=== PATIENT | male | born 1955 | race Caucasian/White ===

== ENCOUNTER 2021-07-23 09:29 | Inpatient (IN) ==
[2021-07-23] MEDS ORDERED: Furosemide 40 MG/4 ML VIAL IVP ONE (09:41)
[2021-07-23 09:58] LABS: Basophils % 0.4 %; Eosinophils % 0.8 %; Hematocrit 30.4 % (37.5-50.1); Hemoglobin 8.6 g/dL (12.9-16.9); Immature Granulocytes % 0.4 % (0-4); Lymphocytes % 20.1 %; Mean Corpuscular HGB Conc 28.3 g/dL (31.6-35.5); Mean Platelet Volume 10.4 fL (9.4-12.4); Monocytes # 0.4 K/mcL (0.0-1.3); Monocytes % 7.7 %; Neutrophils # 3.5 K/mcL (1.6-8.9); Platelet Count 182 K/mcL (140-400); Red Blood Count 3.07 M/mcL (4.19-5.50); Red Cell Distribution Width 16.7 % (11.5-14.5); Segmented Neutrophils % 70.6 %; White Blood Count 4.9 K/mcL (4.3-11.1)
[2021-07-23 10:06] LABS: INR 1.5; Prothrombin Time 16.3 Seconds (9.4-12.1)
[2021-07-23 10:13] LABS: BUN/Creatinine Ratio 15 (6-26); Blood Urea Nitrogen 42 mg/dL (8-23); Carbon Dioxide 22 mEq/L (23-29); Chloride 115 mEq/L (98-107); Glucose 104 mg/dL (70-105); Osmolality,Calculated 311 (280-300); Sodium 145 mEq/L (136-145); eGFR For African Americans 27 (> 60); eGFR For Non-African Americans 22 (> 60)
[2021-07-23 10:17] LABS: Troponin I < 0.03 ng/mL (< 0.04)
[2021-07-23] MEDS ORDERED: Pantoprazole 40 MG VIAL IVP ONE (10:27)
[2021-07-23 10:53] LABS: Anisocytosis 1+ (Not Present); Hypochromasia Present (Not Present); Platelet Estimate Normal (Normal)
[2021-07-23] MEDS ORDERED: NON-FORMULARY MEDICATION 1 EACH EACH (Insulin Aspart [Novolog Flexpen] 100 UNIT/ML Insuln. SQ PRN (14:04)
[2021-07-23] MEDS ORDERED: Silver Sulfadiazine 50 GM TUBE TP ONE (14:27)
[2021-07-23] MEDS ORDERED: Dextrose Gel 15 GM/37.5 ML TUBE PO PRN ×2 (14:31)
[2021-07-23] MEDS ORDERED: D5% in Water 1,000 ML IVC PRN (14:31)
[2021-07-23] MEDS ORDERED: *HR* Dextrose 50 % in Water (Syg) 50 ML SYRINGE IVP PRN (14:31)
[2021-07-23] MEDS ORDERED: Perflutren Lipid Microsphere 1.3 ML in 0.9 % Sodium Chloride 8.7 ML IVP PRN (14:39)
[2021-07-23] MEDS: Gabapentin 300 MG CAPSULE PO SCH ×2 (17:51→21:23)
[2021-07-23] MEDS: Insulin LISPRO 300 UNITS/3 ML VIAL SUBQ SCH ×2 (17:52→21:25)
[2021-07-23] MEDS ORDERED: lisinopriL 5 MG TABLET PO SCH (18:00)
[2021-07-23] MEDS: Apixaban 5 MG TABLET PO SCH (21:23)
[2021-07-23] MEDS: Insulin DETEMIR 100 UNIT/ML X5UNITS SUBQ SCH (21:23)
[2021-07-23] MEDS: Metoprolol XL (24 HR) Succ 25 MG TAB.ER.24H PO SCH (21:23)
[2021-07-23] MEDS: Furosemide 40 MG/4 ML VIAL IVP SCH (21:28)
[2021-07-24 07:00] LABS: Basophils % 0.5 %; Eosinophils # 0.1 K/mcL (0.0-0.6); Eosinophils % 1.2 %; Hematocrit 30.2 % (37.5-50.1); Hemoglobin 8.4 g/dL (12.9-16.9); Immature Granulocytes % 0.5 % (0-4); Lymphocytes # 1.5 K/mcL (0.6-4.6); Lymphocytes % 25.3 %; Mean Corpuscular HGB Conc 27.8 g/dL (31.6-35.5); Mean Corpuscular Hemoglobin 27.6 pg (28.0-33.3); Mean Corpuscular Volume 99.3 fL (83.0-100.0); Mean Platelet Volume 11.1 fL (9.4-12.4); Monocytes # 0.6 K/mcL (0.0-1.3); Monocytes % 9.4 %; Neutrophils # 3.7 K/mcL (1.6-8.9); Platelet Count 182 K/mcL (140-400); Red Blood Count 3.04 M/mcL (4.19-5.50); Red Cell Distribution Width 16.9 % (11.5-14.5); Segmented Neutrophils % 63.1 %; White Blood Count 5.9 K/mcL (4.3-11.1)
[2021-07-24 07:21] LABS: Calcium 7.9 mg/dL (8.6-10.3)
[2021-07-24 09:07] LABS: Ovalocytes 1+ (Not Present); Platelet Estimate Normal (Normal)
[2021-07-24] MEDS: Apixaban 5 MG TABLET PO SCH ×2 (10:14→19:56)
[2021-07-24] MEDS: Gabapentin 300 MG CAPSULE PO SCH ×3 (10:14→19:56)
[2021-07-24] MEDS: Furosemide 40 MG/4 ML VIAL IVP SCH (10:14)
[2021-07-24] MEDS: Metoprolol XL (24 HR) Succ 50 MG TAB.ER.24H PO SCH (10:14)
[2021-07-24] MEDS: BuPROPion XL (24 HR) 150 MG TABLET PO SCH (10:14)
[2021-07-24] MEDS: Insulin LISPRO 300 UNITS/3 ML VIAL SUBQ SCH ×4 (10:21→19:57)
[2021-07-24] MEDS: Metoprolol XL (24 HR) Succ 25 MG TAB.ER.24H PO SCH (19:56)
[2021-07-24] MEDS: Insulin DETEMIR 100 UNIT/ML X5UNITS SUBQ SCH (19:56)
[2021-07-24] MEDS: Furosemide 20 MG/2 ML VIAL IVP SCH (20:09)
[2021-07-24] MEDS ORDERED: Acetaminophen 325 MG TABLET PO PRN (21:11)
[2021-07-25 02:55] VITALS: TEMP 97.4
[2021-07-25] MEDS ORDERED: *HR* Promethazine 25 MG/ML VIAL IM ONE (05:11)
[2021-07-25 06:59] VITALS: BP 123/85; PULSE 97; RESP 20
[2021-07-25 07:13] LABS: Basophils % 0.4 %; Eosinophils # 0.1 K/mcL (0.0-0.6); Hematocrit 30.7 % (37.5-50.1); Hemoglobin 8.6 g/dL (12.9-16.9); Immature Granulocytes % 0.2 % (0-4); Lymphocytes # 1.2 K/mcL (0.6-4.6); Mean Corpuscular Hemoglobin 27.6 pg (28.0-33.3); Mean Corpuscular Volume 98.4 fL (83.0-100.0); Mean Platelet Volume 10.4 fL (9.4-12.4); Monocytes # 0.6 K/mcL (0.0-1.3); Monocytes % 11.1 %; Neutrophils # 3.1 K/mcL (1.6-8.9); Platelet Count 154 K/mcL (140-400); Red Blood Count 3.12 M/mcL (4.19-5.50); Red Cell Distribution Width 16.6 % (11.5-14.5); Segmented Neutrophils % 63.3 %
[2021-07-25 07:38] LABS: Calcium 8.1 mg/dL (8.6-10.3); Magnesium 2.2 mg/dL (1.6-2.6); Potassium 4.9 mEq/L (3.5-5.1)
[2021-07-25] MEDS: Insulin LISPRO 300 UNITS/3 ML VIAL SUBQ SCH ×2 (08:08→12:42)
[2021-07-25] MEDS: BuPROPion XL (24 HR) 150 MG TABLET PO SCH (08:11)
[2021-07-25] MEDS: Gabapentin 300 MG CAPSULE PO SCH (08:12)
[2021-07-25] MEDS: Apixaban 5 MG TABLET PO SCH (08:12)
[2021-07-25] MEDS: Furosemide 20 MG/2 ML VIAL IVP SCH (08:12)
[2021-07-25] MEDS: Metoprolol XL (24 HR) Succ 50 MG TAB.ER.24H PO SCH (08:12)
[2021-07-25 08:37] LABS: Anisocytosis 1+ (Not Present); Microcytosis Present (Not Present); Ovalocytes 1+ (Not Present); Platelet Estimate Normal (Normal)
[2021-07-25 13:44] VITALS: O2SAT 100
[2021-07-25] MEDS ORDERED: FLU Vac QV 21-22 (6Month+)/PF 0.5 ML SYRINGE IM ONE (13:44)
[2021-07-28] MEDS ORDERED: Ergocalciferol (VIT D2) 50,000 UNIT (1.25MG) CAP PO SCH (09:00)
[2021-07-29] MEDS ORDERED: Ergocalciferol (VIT D2) 50,000 UNIT (1.25MG) CAP PO SCH (09:00)
== END 2021-07-25 14:10 | disposition home or self-care (01) | DRG 292 ==
LOC: INPPIK 09:29 → EMEROOPIK 09:29 → INPPIK 16:02
PROVIDERS: ADMIT Internal Medicine; ATTEND Internal Medicine